=== PATIENT | male | born 1940 | race Caucasian/White ===

== ENCOUNTER → 2017-06-07 | Outpatient (CLI) | payer OTHER ==
[~2017-06-07] MED LIST: ALLEGRA-D 12 H1 EAC1 PO; ALLEGRA180 MG PO; ALLER-EASE180 MG PO; AMARYL2 MG PO; BLOOD PRESSURE PILL; CATAPRES-TTS 10.1 MG TD; CIPROFLOXACIN500 M1 PO; CLONIDINE HCL0.2 M2 PO; COLACE 100 MG100 MG PO; COLACE1 EAC1 PO; COLACE100 MG PO; CYMBALTA60 MG PO; FLONASE 0.05%50 MCG NASAL; HYDROCODON-ACE1 EAC7 PO; HYTRIN 5 M5 MG/1 CAP PO; LIPITOR40 MG PO; LIPITOR80 MG PO; LISINOPRIL20 MG PO; LISINOPRIL40 MG PO; LODINE500 MG PO; METFORMIN PO; METOPROLOL SUCC25 M1 PO; MIRALAX17 GM PO; MULTIGEN CAPLET1 CAP PO; NEURONTIN 300300 M1 PO; NORCO 10-325 T1 EACH PO; OMEPRAZOLE40 MG PO; PIOGLITAZONE15 MG; RANITIDINE 150150 M1 PO; SENNA S TABLET1 EACH PO; TERAZOSIN HCL10 MG PO; VICODIN 5-5001 EACH PO; ZANTAC 150MG T150 MG PO; ZOFRAN4 MG PO
== END ==
LOC: HYPER 06-06 10:01
DX: S80.812A Abrasion, left lower leg, initial encounter (principal); E11.40 Type 2 diabetes mellitus with diabetic neuropathy, unspecified; E11.65 Type 2 diabetes mellitus with hyperglycemia; I10 Essential (primary) hypertension; E78.2 Mixed hyperlipidemia; M15.9 Polyosteoarthritis, unspecified; J45.909 Unspecified asthma, uncomplicated; F17.200 Nicotine dependence, unspecified, uncomplicated; Z85.89 Personal history of malignant neoplasm of other organs and systems; X58.XXXA Exposure to other specified factors, initial encounter; Y93.89 Activity, other specified; Y92.89 Other specified places as the place of occurrence of the external cause; Y99.8 Other external cause status

== ENCOUNTER → 2017-08-20 | Outpatient (CLI) | payer OTHER ==
[~2017-08-20] MED LIST changes: +NORCO 5-325 TA1 EACH PO
== END ==
LOC: HYPER 06-26 06:56
DX: E11.622 Type 2 diabetes mellitus with other skin ulcer (principal); L97.821 Non-pressure chronic ulcer of other part of left lower leg limited to breakdown of skin; L97.811 Non-pressure chronic ulcer of other part of right lower leg limited to breakdown of skin; I73.9 Peripheral vascular disease, unspecified; J45.909 Unspecified asthma, uncomplicated; E78.5 Hyperlipidemia, unspecified; I10 Essential (primary) hypertension; M19.90 Unspecified osteoarthritis, unspecified site; F17.200 Nicotine dependence, unspecified, uncomplicated; Z85.828 Personal history of other malignant neoplasm of skin

== ENCOUNTER → 2017-08-27 | Outpatient (CLI) | payer OTHER | LOC: HYPER 07:11 | DX: E11.622 Type 2 diabetes mellitus with other skin ulcer (principal); L97.811 Non-pressure chronic ulcer of other part of right lower leg limited to breakdown of skin; L97.821 Non-pressure chronic ulcer of other part of left lower leg limited to breakdown of skin; E11.51 Type 2 diabetes mellitus with diabetic peripheral angiopathy without gangrene; E11.65 Type 2 diabetes mellitus with hyperglycemia; E11.40 Type 2 diabetes mellitus with diabetic neuropathy, unspecified; I89.0 Lymphedema, not elsewhere classified; E78.2 Mixed hyperlipidemia; I10 Essential (primary) hypertension; L84 Corns and callosities; I87.2 Venous insufficiency (chronic) (peripheral); M19.90 Unspecified osteoarthritis, unspecified site; N43.3 Hydrocele, unspecified; J45.909 Unspecified asthma, uncomplicated; F17.200 Nicotine dependence, unspecified, uncomplicated; Z85.89 Personal history of malignant neoplasm of other organs and systems ==

== ENCOUNTER → 2017-09-03 | Outpatient (CLI) | payer OTHER | LOC: HYPER 06:47 | DX: I87.2 Venous insufficiency (chronic) (peripheral) (principal); E11.622 Type 2 diabetes mellitus with other skin ulcer; L97.811 Non-pressure chronic ulcer of other part of right lower leg limited to breakdown of skin; L97.821 Non-pressure chronic ulcer of other part of left lower leg limited to breakdown of skin; R60.0 Localized edema; R21 Rash and other nonspecific skin eruption; E11.51 Type 2 diabetes mellitus with diabetic peripheral angiopathy without gangrene; E11.40 Type 2 diabetes mellitus with diabetic neuropathy, unspecified; I89.0 Lymphedema, not elsewhere classified; E78.2 Mixed hyperlipidemia; N43.3 Hydrocele, unspecified; M15.9 Polyosteoarthritis, unspecified; L25.1 Unspecified contact dermatitis due to drugs in contact with skin; K63.5 Polyp of colon; J45.909 Unspecified asthma, uncomplicated; E78.5 Hyperlipidemia, unspecified; I10 Essential (primary) hypertension; F17.200 Nicotine dependence, unspecified, uncomplicated ==

== ENCOUNTER → 2017-09-10 | Outpatient (CLI) | payer OTHER | LOC: HYPER 07:01 | DX: E11.622 Type 2 diabetes mellitus with other skin ulcer (principal); I87.2 Venous insufficiency (chronic) (peripheral); L97.811 Non-pressure chronic ulcer of other part of right lower leg limited to breakdown of skin; L97.821 Non-pressure chronic ulcer of other part of left lower leg limited to breakdown of skin; R60.0 Localized edema; R21 Rash and other nonspecific skin eruption; E11.51 Type 2 diabetes mellitus with diabetic peripheral angiopathy without gangrene; E11.40 Type 2 diabetes mellitus with diabetic neuropathy, unspecified; I89.0 Lymphedema, not elsewhere classified; J45.909 Unspecified asthma, uncomplicated; E78.5 Hyperlipidemia, unspecified; M19.90 Unspecified osteoarthritis, unspecified site; F17.200 Nicotine dependence, unspecified, uncomplicated ==

== ENCOUNTER → 2017-09-24 | Outpatient (CLI) | payer OTHER ==
[~2017-09-24] MED LIST changes: -NORCO 5-325 TA1 EACH PO
== END ==
LOC: HYPER 06:55
DX: E11.622 Type 2 diabetes mellitus with other skin ulcer (principal); I87.2 Venous insufficiency (chronic) (peripheral); L97.811 Non-pressure chronic ulcer of other part of right lower leg limited to breakdown of skin; L97.821 Non-pressure chronic ulcer of other part of left lower leg limited to breakdown of skin; E11.40 Type 2 diabetes mellitus with diabetic neuropathy, unspecified; R21 Rash and other nonspecific skin eruption; R60.0 Localized edema; E11.51 Type 2 diabetes mellitus with diabetic peripheral angiopathy without gangrene; I89.0 Lymphedema, not elsewhere classified; E78.5 Hyperlipidemia, unspecified; J45.909 Unspecified asthma, uncomplicated; M19.90 Unspecified osteoarthritis, unspecified site; F17.200 Nicotine dependence, unspecified, uncomplicated

== ENCOUNTER → 2017-10-15 | Outpatient (CLI) | payer OTHER | LOC: HYPER 06:46 | DX: E11.622 Type 2 diabetes mellitus with other skin ulcer (principal); L97.811 Non-pressure chronic ulcer of other part of right lower leg limited to breakdown of skin; L97.821 Non-pressure chronic ulcer of other part of left lower leg limited to breakdown of skin; E11.51 Type 2 diabetes mellitus with diabetic peripheral angiopathy without gangrene; I87.2 Venous insufficiency (chronic) (peripheral); E11.40 Type 2 diabetes mellitus with diabetic neuropathy, unspecified; I89.0 Lymphedema, not elsewhere classified; I10 Essential (primary) hypertension; E78.2 Mixed hyperlipidemia; N43.3 Hydrocele, unspecified; M15.9 Polyosteoarthritis, unspecified; L25.1 Unspecified contact dermatitis due to drugs in contact with skin; K63.5 Polyp of colon; R21 Rash and other nonspecific skin eruption; R60.0 Localized edema; J45.909 Unspecified asthma, uncomplicated; E78.5 Hyperlipidemia, unspecified; M19.90 Unspecified osteoarthritis, unspecified site; F17.200 Nicotine dependence, unspecified, uncomplicated ==

== ENCOUNTER 2017-12-07 20:48 | Emergency (ER) | payer OTHER ==
[~2017-12-07] VITALS: Ht 172.7 cm; Wt 90.7 kg
[2017-12-07] MEDS ORDERED: NORCO 5-325 TA1 EACH PO (21:45)
[2017-12-07 22:19] VITALS: BP 128/81
== END 2017-12-07 22:30 | disposition home or self-care (01) ==
LOC: ER 20:48
DX: S46.002A Unspecified injury of muscle(s) and tendon(s) of the rotator cuff of left shoulder, initial encounter (principal); I10 Essential (primary) hypertension; E11.9 Type 2 diabetes mellitus without complications; M19.90 Unspecified osteoarthritis, unspecified site; F17.210 Nicotine dependence, cigarettes, uncomplicated; Z88.2 Allergy status to sulfonamides; Z88.8 Allergy status to other drugs, medicaments and biological substances; X58.XXXA Exposure to other specified factors, initial encounter; Y93.89 Activity, other specified; Y92.89 Other specified places as the place of occurrence of the external cause; Y99.8 Other external cause status

== ENCOUNTER 2020-04-22 14:52 | Inpatient (IN) | payer OTHER ==
[~2020-04-22] VITALS: Ht 177.8 cm; Wt 98.2 kg
--- NOTE | ~2020-04-22 | HC ---
[facility] [place] [address] CONSULTATION Name: NAYELI COOK REYNOLD Room #: 452-P ADM IN M.R.#: [id number] Admission: 04/22/20 Attend Phys: Jas Stein MD Discharge: Date of : 40 Report #: [id number] THIS REPORT FOR: cc: Nora Martinez MD, Constance M. MD Althoff, Jeffrey R. MD ~ DATE OF SERVICE: 04/23/2020 CHIEF COMPLAINT: Gluteal and lower extremity ulcerations. HISTORY OF PRESENT ILLNESS: This is an 80-year-old male patient admitted to the hospital with cellulitis and ulcerations of his lower extremities due to recurrent falls. He is denying any significant pain, but does note tenderness when his legs are palpated. He is a little bit slow to answer some questions tonight, but does not seem to be in any distress. PAST MEDICAL HISTORY: Positive for hypertension, arthritis, type 2 diabetes mellitus, back pain and previous hernia. SOCIAL HISTORY: Negative for alcohol use. He is a current smoker. FAMILY HISTORY: Noncontributory. MEDICATIONS: Include gabapentin, lisinopril, clonidine, atorvastatin, terazosin, duloxetine, glimepiride, ketaconazole, cholecalciferol, fluticasone. REVIEW OF SYSTEMS: CONSTITUTIONAL: The patient denies fever, chills or weight loss. NEUROLOGICAL: The patient denies focal weakness, numbness or tingling. EYES: The patient denies visual changes, redness, or drainage. ENT: The patient denies earache, nasal drainage, or sore throat. CARDIOVASCULAR: The patient denies chest pain, palpitations or diaphoresis. PULMONARY: The patient denies cough or shortness of breath. GASTROINTESTINAL: The patient denies nausea, vomiting, diarrhea or abdominal pain. ORTHOPEDIC: The patient does have some pain and swelling and ulceration to the lower extremities. Other systems were 14-point review of systems are negative. PHYSICAL EXAMINATION: VITAL SIGNS: At this time include temperature 37.1, pulse 77, respiratory rate 17, blood pressure 146/63. GENERAL: This is a chronically ill-appearing male patient who appears to be in no distress. [address] [address] CONSULTATION Name: NAYELI COOK [facility] Room #: 452-P [facility] IN .R.#: [id number] Admission: 04/22/20 Attend Phys: Jas Stein MD Discharge: Date of : 40 Report #: [id number] HEENT: Head is normocephalic. Nose and throat clear. NECK: Supple. LUNGS: Clear. ABDOMEN: Soft. EXTREMITIES: Gluteal region demonstrates stage 3 pressure ulcerations to the buttocks x 2 on the left side. He has a small circular ulceration to the right knee that is dry. There is a pretibial ulceration. It is unclear as to whether this was the site of a blister or a traumatic wound. There is surrounding cellulitis and moderate swelling surrounding the area. Distal pulses are diminished. NEUROLOGIC: The patient is alert, does move all 4 extremities spontaneously. LABORATORY DATA: White blood cell count 8.7, hemoglobin 8.8. Sodium 141, potassium 4.6, chloride 109, CO2 of 22, BUN 34, creatinine 1.4, glucose 136. CLINICAL IMPRESSION: 1. Traumatic wound to the right knee. 2. Ulceration versus traumatic wound to the right pretibial region. 3. Cellulitis of the right lower extremity. 4. Stage 3 pressure ulceration of the left gluteal region. 5. Type 2 diabetes mellitus. 6. Generalized debility. RECOMMENDATIONS: At this point in time, we will recommend topical gentamicin, Xeroform gauze to the open areas on the right lower leg. We will recommend Kerlix and Junior wrap for gentle compression. We will check arterial Dopplers to evaluate for underlying peripheral vascular disease. Recommend border foam to the right knee. Recommend zinc oxide based moisture barrier cream to the gluteal ulcerations. He will need q. 2 hour turning and positioning a low air last surface and ongoing nutritional support to maximize wound healing and improve glycemic control. I appreciate being asked to see the patient in consultation. By: 13 1 Errol Galan MD /nt
[~2020-04-22 14:52] MED LIST changes: +NORCO 5-325 TA1 EACH PO
[2020-04-22 14:53] VITALS: BP 116/28
[2020-04-22] MEDS ORDERED: KETOCONAZOLE15 GM TOP (14:59)
[2020-04-22] MEDS ORDERED: GLIMEPIRIDE4 MG PO (14:59)
[2020-04-22] MEDS ORDERED: 24HR ALLERGY REL5 MG PO (15:00)
[2020-04-22] MEDS ORDERED: PROTONIX40 M2 PO (15:00)
[2020-04-22] MEDS ORDERED: LANTUS SUBQ (15:00)
[2020-04-22] MEDS ORDERED: AZELASTINE205.5 MCG/ NARES (15:01)
[2020-04-22] MEDS ORDERED: FAMOTIDINE 40 M40 M1 PO (15:02)
[2020-04-22] MEDS ORDERED: DIALYVITE VI1250 MCG PO (15:02)
[2020-04-22] MEDS ORDERED: NEURONTIN300 MG PO ×2 (15:02→15:03)
[2020-04-22] MEDS ORDERED: IPRAT-ALBUT 0.5-3 ML INH (15:03)
[2020-04-22] MEDS ORDERED: BREO ELLIPTA 11 EACH INH (15:04)
[2020-04-22] MEDS ORDERED: FLONASE 0.05%50 MCG NARES (15:04)
[2020-04-22 15:36] LABS: ABSOLUTE NEUTROPHILS 7.8 thou/uL (1.4-8.2); BASOPHILS 0.3 % (0.0-2.0); EOSINOPHILS 1.5 % (0.0-3.0); HEMOGLOBIN 8.7 gm/dL (14.0-18.0); LYMPHOCYTES 6.8 % (24.0-44.0); MCH 32.6 pg (26.0-34.0); MCHC 33.6 g/dL (28.0-37.0); MCV 97.1 fL (80.0-100.0); MONOCYTES 8.3 % (1.0-8.0); PLATELET COUNT 281 thou/uL (150-400); POLYS 83.1 % (36.0-66.0); RBC 2.68 mil/uL (4.50-6.00); RDW 14.3 % (10.5-14.5); WBC 9.4 thou/uL (4.0-11.0)
[2020-04-22 15:52] LABS: ANION GAP 13 mmol/L (7-16); BUN 38 mg/dL (7-18); CALCIUM 8.6 mg/dL (8.5-10.1); CHLORIDE 107 mmol/L (98-107); CO2 22 mmol/L (21-32); CREATININE 1.8 mg/dL (0.7-1.3); GLUCOSE 161 mg/dL (74-106); POTASSIUM 4.6 mmol/L (3.5-5.1); SODIUM 142 mmol/L (136-145)
[2020-04-22 16:11] LABS: ALBUMIN 2.2 g/dL (3.4-5.0); SGOT 86 U/L (15-37); SGPT 56 U/L (30-65); TOTAL BILIRUBIN 0.5 mg/dL (0.2-1.0); TROPONIN-I <0.06 ng/mL (<0.06)
[2020-04-22 16:26] LABS: URINE BILIRUBIN NEGATIVE (Negative); URINE BLOOD NEGATIVE (Negative); URINE CLARITY CLEAR; URINE COLOR YELLOW; URINE GLUCOSE-RANDOM* NEGATIVE (Negative); URINE KETONES NEGATIVE (Negative); URINE LEUKOCYTES-REFLEX NEGATIVE (Negative); URINE NITRITE-REFLEX NEGATIVE (Negative); URINE PROTEIN (DIPSTICK) NEGATIVE (Negative); URINE SPECIFIC GRAVITY 1.025 (1.005-1.035); URINE UROBILINOGEN 0.2 E.U./dl (0.2-1.0)
--- NOTE | 2020-04-22 17:12 | NUR ---
PT WANTS FAMILY MEMBER NOTIFIED OF ANY CHANGES-ALSO NEXT OF KIN-MICHELLE MAHMOOD-[phone]
[2020-04-22 18:28] LABS: FOLIC ACID 6.3 ng/mL (8.6-58.9); TSH 0.529 uIU/mL (0.358-3.740)
[2020-04-22 18:50] LABS: % SATURATION 16 % (20-39); IRON 37 ug/dL (65-175); TIBC 228 ug/dL (250-450)
[2020-04-22 19:36] VITALS: BP 132/46
[2020-04-22 20:06] VITALS: BP 136/54
[2020-04-22 20:30] VITALS: BP 142/37
[2020-04-23 00:19] VITALS: BP 138/51
--- NOTE | 2020-04-23 03:06 | NUR ---
Admission history and assessments completed. Careplan intiated. Bilateral extremity cellulitis. Ulcers buttocks area. Pictures taken. IVfluids infusing and IV antibiotics started. High fall risks, fall precautions in place. Vital signs and rhythm stable. Patient slept after Hydrocodone for pain.
[2020-04-23 06:16] LABS: BASOPHILS 0.3 % (0.0-2.0); EOSINOPHILS 1.2 % (0.0-3.0); HEMATOCRIT 26.1 % (42.0-52.0); HEMOGLOBIN 8.8 gm/dL (14.0-18.0); MCHC 33.7 g/dL (28.0-37.0); MCV 97.8 fL (80.0-100.0); MONOCYTES 7.7 % (1.0-8.0); PLATELET COUNT 284 thou/uL (150-400); POLYS 80.8 % (36.0-66.0); RBC 2.67 mil/uL (4.50-6.00); RDW 14.6 % (10.5-14.5); WBC 8.7 thou/uL (4.0-11.0)
[2020-04-23 06:28] LABS: CALCIUM 8.6 mg/dL (8.5-10.1); CREATININE 1.4 mg/dL (0.7-1.3); MAGNESIUM 2.1 mg/dL (1.8-2.4); POTASSIUM 4.6 mmol/L (3.5-5.1)
--- NOTE | 2020-04-23 07:40 | EKG ---
[facility] [place] [address] ELECTROCARDIOGRAM REPORT Name: NAYELI COOK [facility] Room #: 452-P ADM IN M.R.#: [id number] Admission: 04/22/20 Attend Phys: Jas Stein MD Discharge: Date of : 40 Report #: [id number] THIS REPORT FOR: cc: Nora Martinez MD, Constance M. MD Santiago, Patrick MD [facility] ~ THIS REPORT FOR: //name// [facility] ED Test Date: 2020-04-22 Test Time: 15:56:36 Pat Name: NAYELI COOK Department: Room: 452 Gender: M Video Coordinator: ALAINA : 1940 Requested By: Michelle Rodriguez Order Number: [id number] MD: Matti Ludwig Measurements Intervals [place] Rate: 77 P: 21 OH: 169 QRS: 2 QRSD: 94 T: 71 QT: 373 QTc: 423 Interpretive Statements Sinus rhythm Atrial premature complex Low voltage, precordial leads Compared to ECG 12/19/2016 17:20:08 Atrial premature complex(es) now present Low QRS voltage now present Electronically Signed On 04-23-2020 7:39:47 CDT by Matti Ludwig [email or web address] <ELECTRONICALLY SIGNED> By: Matti Ludwig MD, FACC 04/23/20 0739 1556 1556 Matti Ludwig MD, FAC /EPI
[2020-04-23 08:05] VITALS: BP 111/51
[2020-04-23 08:10] VITALS: BP 111/81
--- NOTE | 2020-04-23 10:08 | 2DMMODE ---
[facility] [place] [address] 2 D/M-MODE ECHOCARDIOGRAM Name: NAYELI COOK REYNOLD Room #: 452-P ADM IN M.R.#: [id number] Admission: 04/22/20 Attend Phys: Jas Stein MD Discharge: Date of : 40 Report #: [id number] THIS REPORT FOR: cc: Nora Martinez MD, Constance M. MD Lundgren, Craig H. MD [facility] ~ APPROVED REPORT Study performed: 04/23/2020 09:25:11 EXAM: Comprehensive 2D, Doppler, and color-flow Echocardiogram Patient Location: Bedside Room #: 452 Status: routine BSA: 2.16 HR: 90 bpm BP: 111/81 mmHg Rhythm: Sinus arrhythmia Other Information Study Quality: Adequate Indications Edema to bilateral lower extremities. Hx: HTN, HLD, DM. 2D Dimensions RVDd: 37.64 mm IVSd: 12.00 (7-11mm) LVOT Diam: 22.00 (18-24mm) LVDd: 47.00 mm PWd: 13.00 (7-11mm) LVDs: 30.00 (25-40mm) Aortic Root: 37.00 mm Volumes Left Atrial Volume (Systole) Single Plane 4CH: 44.42 mL Single Plane 2CH: 47.23 mL LA ESV Index: 23.00 mL/m2 Aortic Valve AoV Peak Jose J.: 2.30 m/s AO Peak Gr.: 21.25 mmHg LVOT Max P.46 mmHg AO Mean Gr.: 11.81 mmHg AO V2 Mean: 1.62 m/s LVOT Max V: 1.45 m/s [facility] [address] [place] [address] 2 D/M-MODE ECHOCARDIOGRAM Name: NAYELI COOK REYNOLD Room #: 452-P [facility] IN [facility]#: [id number] Admission: 04/22/20 Attend Phys: Jas Stein, Discharge: Date of : 40 Report #: [id number] AO V2 VTI: 37.62 cm LCAIE Vmax: 2.35 cm2 Mitral Valve E/A Ratio: 0.7 MV Decel. Time: 222.19 ms MV E Max Jose J.: 0.81 m/s MV A Jose J.: 1.09 m/s MV PHT: 64.44 ms IVRT: 65.74 ms Pulmonary Valve PV Peak Jose J.: 1.43 m/s PV Peak Gr.: 8.22 mmHg Tricuspid Valve RAP Estimate: 5.00 mmHg Left Ventricle The left ventricle is normal size. There is normal LV segmental wall motion. Mild concentric left ventricular hypertrophy. Left ventricular systolic function is normal. LVEF is 65-70%. Mild diastolic dysfunction Right Ventricle The right ventricle is normal size. The right ventricular systolic function is normal. Atria The left atrium size is normal. The right atrium size is normal. Aortic Valve Aortic valve is trileaflet, mildly sclerotic. Trace aortic regurgitation. There is no aortic valvular stenosis. Mitral Valve The mitral valve is normal in structure. There is no mitral valve regurgitation noted. No evidence of mitral valve stenosis. Tricuspid Valve The tricuspid valve is normal in structure. There is no tricuspid valve regurgitation noted. Unable to assess PA pressure. Pulmonic Valve Pulmonic valve is not well visualized. Trace pulmonic regurgitation. [facility] [address] [place] [address] 2 D/M-MODE ECHOCARDIOGRAM Name: NAYELI COOK REYNOLD Room #: 452-P [facility] IN M.R.#: [id number] Admission: 04/22/20 Attend Phys: Jas Stein, Discharge: Date of : 40 Report #: [id number] Great Vessels The aortic root is normal in size. Ascending aorta is not well visualized. IVC is normal in size and collapses >50% with inspiration. Pericardium There is no pericardial effusion. <Conclusion> Left ventricular systolic function is normal. There is normal LV segmental wall motion. LVEF is 65-70%. Mild diastolic dysfunction Aortic valve is trileaflet, mildly sclerotic. Trace aortic regurgitation, no stenosis. The mitral valve is normal in structure. No mitral valve regurgitation. Unable to assess pulmonary artery pressure. There is no pericardial effusion. <ELECTRONICALLY SIGNED> By: Darshan Lamb MD, FACC 04/23/201007 07 07 Darshan Lamb MD, [facility] /INF
--- NOTE | 2020-04-23 14:42 | NUR ---
PT ADMITTED RELATED TO CELLULITIS. CM REVIEWED CHART AND SPOKE WITH CARE TEAM. CM MET WITH PT AT BEDSIDE THIS DAY. PT APPEARED TO BE A&O X4. CM ROLE INTRODUCED. PT INDIATED HE LIVES ALONE IN A HOUSE WITH NO STEPS TO ENTER AND 12 STEPS TO BASEMENT BUT HE DOESN'T GO DOWN THERE OFTEN. PT INDICATED THAT HE HAD BEEN USING A 4WW TO ASSIST WITH MOBILITY IN THE HOME. 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 PT INDICATED NO SKILLED, OR HH HX BUT THAT HE HAD DONE OP PT AT [facility] IN THE PAST. PT INDICATED THAT HE IS RECEPTIVE TO POST ACUTE CARE STAY IF NEEDED UPON DC AND THAT DTR WOULD LIKE FOR PT TO BE SOMEWHERE CLOSE TO [place] WHERE SHE LIVES. CM SPOKE WITH PT'S DTR MICHELLE WHO IS HIS STEP DTR. SHE INDICATED THAT PT HAS BEEN HOUSE BOUND FOR THE AST 3 WEEKS. 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 SHE INDICATED THAT PT CAN'T READ AND THEREFORE DOESN'T TAKE MEDICATIONS PERSCRIBED. SHE TOOK TWO TRASH BAGS OF PERSCRIPTIONS MEDS OUT OF THE HOUSE DAY OF ADMISSION AND PT DOESN'T CHECK HIS BS. SHE INDICATED THAT SHE HAD BEEN ASSISTING PT IN LOOKING TO MOVE TO A SENIOR APARTMENT COMPLEX [facility] PRIOR TO ADMIT. PT AND STEP DTR MICHELLE ARE RECEPTIVE TO POST ACUTE CARE STAY AND HAVE ASKED THAT REFERRALS BE SENT TO [facility] FOR REVIEW FOR POSSIBLE ADMISSION. CM FAXED REFERRALS. LIKELY NO DC OVER WEEKEND WE WOULD NEED AUTH.
[2020-04-23 16:41] VITALS: BP 140/69
--- NOTE | 2020-04-23 18:38 | NUR ---
ASSUMED CARE OF PATIENT AT SHIFT CHANGE. ASSESSMENT CHARTED. MEDS GIVEN PER MAR. VSS. PATIENT IS A&OX3 AND C/O PAIN; GENERALIZED AND ON BLE. PATIENT HAS MULTIPLE WOUNDS. WOUND CARE WAS CONSULTED AND ORDERS ARE ANTICIPATED. PATIENT IS VERY TIRED TODAY AND STATES HE DID NOT SLEEP WELL LAST NIGHT. IS TOLERATING DIET WELL BUT APPETITE IS NOT ADEQUATE. CM SPOKE WITH THIS PATIENT AND PLAN IS FOR PLACEMENT. WILL CONTINUE TO MONITOR
[2020-04-23 19:41] VITALS: BP 146/63
--- NOTE | 2020-04-23 23:09 | NUR ---
Care of patient assumed at 1915: Patient resting quietly in bed. Denies pain or discomfort. Bilateral heel protectors in place. Order placed for specialty low air loss bed. Spoke with Ed from [facility] who stated bed will be delivered 04/24/20 in the AM. High fall risk precautions in place. Wound treatments completed to right knee, right garcia, left lower extremity, left upper buttock and left lower buttock. Re-positioned q2 hours. Resting quietly at this time.
[2020-04-24 08:04] VITALS: BP 145/54
[2020-04-24 15:21] VITALS: BP 141/66
[2020-04-24 15:54] LABS: CALCIUM 8.3 mg/dL (8.5-10.1); CREATININE 1.2 mg/dL (0.7-1.3); POTASSIUM 4.5 mmol/L (3.5-5.1)
[2020-04-24 16:10] LABS: HEMATOCRIT 26.6 % (42.0-52.0); HEMOGLOBIN 8.5 gm/dL (14.0-18.0); MCH 32.1 pg (26.0-34.0); MCHC 32.1 g/dL (28.0-37.0); RBC 2.66 mil/uL (4.50-6.00); RDW 14.9 % (10.5-14.5); WBC 11.9 thou/uL (4.0-11.0)
--- NOTE | 2020-04-24 16:40 | NUR ---
ASSUMED CARE OF PATIENT AT APPROX. 0800. ASSESSMENT CHARTED. MEDS GIVEN PER MAR. VSS. PATIENT IS ALERT BUT IS CONFUSED AT TIMES. PATIENT STILL HAS WEAKNESS BUT IS AWAKE TODAY. IV INFUSING ABX W NO ISSUES. FSBS IMPROVING. WANTED TO GET UP TODAY W PT BUT WAS NOT ABLE TO WORK W THEM.INCONT OF BLADDER; EXTERNAL MALE CATH IN PLACE. PATIENT CONTINUES TO BE REPOSITIONED AND CHANGED OFTEN. PATIENT CALLED OUT TO USE THE BEDPAN FOR A BM. COMPLAINED OF A HEADACHE; TREATED W PRN ANALGESIC W COMPLETE PAIN RELIEF. PATIENT VOICED NO OTHER NEEDS AT THIS TIME. FALL PRECAUTIONS IN PLACE. WILL CONTINUE TO MONITOR
[2020-04-24 19:55] VITALS: BP 144/67
--- NOTE | 2020-04-25 02:18 | NUR ---
PATIENT ALERT AND ORIENTED X4 WITH CONFUSION. BS MONITORED PER ORDER. MEDICATED FOR PAIN X1 WITH GOOD RESULTS. MS TELE-NSR. VOIDING PER URINAL WELL INCONTINENT. NO STOOL AT TIME OF NOTE. DRESSINGS DRY AND INTACT. DENIES NAUSEA. WILL MONITOR.
[2020-04-25 08:28] VITALS: BP 166/74
[2020-04-25 15:01] VITALS: BP 184/67
[2020-04-25 15:10] VITALS: BP 166/74
--- NOTE | 2020-04-25 15:12 | NUR ---
PT ALERT AND ORIENTED TIMES FOUR. PT C/O PAIN PRN PAIN MEDICATIONS GIVEN WITH SOME RELEIF. DRESSING TO BLE CHANGED. PT TOLERATES MEDS AND MEALS. WILL CONTINUE TO MONITOR.
[2020-04-25 19:00] VITALS: BP 161/64
--- NOTE | 2020-04-26 00:49 | NUR ---
PATIENT AOX4 MAKES NEEDS KNOWN. PATIENT IS INCONTIENT OF BLADDER PERICARE AND BARRIER CREAM APPLIED NEEDED. PATIENT HAS BLE CELLULITIS, PATIENT ENCOURAGED TO ELEVATE BLE. FALL PRECAUTION IN PLACE. PATIENT IN BED ASLEEP AT THIS TIME BREATHING REGULAR AND UNLABOURED.
[2020-04-26 08:00] VITALS: BP 155/102; BP 169/66
--- NOTE | 2020-04-26 08:36 | HC ---
[facility] [place] [address] CONSULTATION Name: NAYELI COOK REYNOLD Room #: 452-P ADM IN M.R.#: [id number] Admission: 04/22/20 Attend Phys: Jas Stein MD Discharge: Date of : 40 Report #: [id number] THIS REPORT FOR: cc: Nora Martinez MD, Constance M. MD Al-Tish,Malathi Mendoza MD ~ REASON FOR CONSULTATION: Elevated creatinine. REASON FOR PRESENTATION: Multiple falls and weakness. HISTORY OF PRESENT ILLNESS: An 80-year-old with past medical history of diabetes mellitus and hypertension. He was brought by the EMS due to recent multiple falls. He was found to have an elevated creatinine at 1.8 on arrival. Prior values of the patient's creatinine had revealed that his creatinine is anywhere from 1.1-1.5. Initial evaluation revealed that the patient has left popliteal vein DVT and what seems to be cellulitis on the lower extremity. The patient was admitted to further evaluate his issues. I was consulted to manage his acute kidney injury. He does have significant risk factors for chronic kidney disease including longstanding diabetes mellitus and hypertension. He denies nonsteroidal anti-inflammatory medications. He denies any obstructive symptoms. MEDICATIONS: 1. Lisinopril. 2. Clonidine. 3. Terazosin. 4. Pantoprazole. 5. Gabapentin. PAST MEDICAL AND SURGICAL HISTORY: 1. Hypertension. 2. Diabetes mellitus. 3. Arthritis. 4. Back pain issues. FAMILY HISTORY: Significant for diabetes mellitus. SOCIAL HISTORY: No drug or alcohol abuse. ALLERGIES: SULFA. REVIEW OF SYSTEMS: GENERAL: No fever or chills, but significant for repeated falls and weakness. CARDIOVASCULAR: No chest pain or palpitation, but significant for edema. PULMONARY: No cough or hemoptysis. [facility] [address] [place] [address] CONSULTATION Name: NAYELI COOK REYNOLD Room #: 452-P [facility] IN [facility]#: [id number] Admission: 04/22/20 Attend Phys: Jas Stein MD Discharge: Date of : 40 Report #: [id number] GASTROINTESTINAL: No nausea or vomiting. GENITOURINARY: No frequency, no urgency. MUSCULOSKELETAL: As per the history of present illness. NEUROLOGICAL: No headache, but significant for repeated falls. PHYSICAL EXAMINATION: VITAL SIGNS: Temperature 37.6, pulse rate is 93, respiratory rate is 14, and blood pressure is 111/81. HEAD AND NECK: No jugular venous distention. CHEST: No crackles. CARDIOVASCULAR: No rub detected. ABDOMEN: Soft, nontender. LOWER EXTREMITIES: Extensive bilateral lower extremity edema with what seems to be cellulitis on the right side. LABORATORY VALUES: From today revealed the following: Sodium 141, potassium 4.6, BUN is 34, creatinine is 1.4. Hemoglobin is 8.8. His UA is completely not remarkable. IMPRESSION AND PLAN: 1. Acute kidney injury. 2. Deep venous thrombosis. 3. Lower extremity edema, what seems to be cellulitis. 4. Anemia. 5. He is back to his baseline from the renal perspective. This is chronic kidney disease due to longstanding diabetes mellitus and hypertension. 6. He is currently being treated appropriately for his cellulitis and deep venous thrombosis. 7. He needs very strict salt restriction. We will initiate on very gentle torsemide dose for his edema to help with the control of the edema and the cellulitis. 8. Discontinue IV fluid. 9. Discontinue Neurontin. 10. Follow vancomycin level. No further renal recommendations. I will sign off. <ELECTRONICALLY SIGNED> By: Malathi Moulton MD 04/26/20 0836 0815 1314 Malathi Moulton MD /nt
[2020-04-26 11:38] LABS: CALCIUM 8.7 mg/dL (8.5-10.1); CREATININE 1.1 mg/dL (0.7-1.3); POTASSIUM 4.1 mmol/L (3.5-5.1)
--- NOTE | 2020-04-26 11:40 | NUR ---
Assumed pt care at 7am.Assessment completed.vss.Pt c/o lower extremities pain. Pain med given with am meds and well tolerated.Dr Bryan here,order noted. Covid 19 swab done later this morning in prep for dc to snf. Drsg change will be done after seen by wound care today.No further c/o at present.Will continue to monitor.
--- NOTE | 2020-04-26 11:51 | NUR ---
CM FOLLOWED UP WITH HI IN ADMISSIONS AT [place]. SHE INDICATED THAT ALTHOUGH CM HAD FAXED REFERRAL THREE TIMES [facility] THAT THEIR FAX WAS STILL BROKEN AND SHE HADN'T RECIEVED IT. CM REFAXED. CM CALLED AGAIN AND SHE RECIEVED IT THIS AM. SHE WAS MAKING SURE THEY ARE IN NETWORK WITH PT'S INSURANCE. CM TO REACH OUT TO [facility] AND SEND CLINICAL UPDATES. PT'S COVID TEST WEAS DONE THIS AM. CM TO FOLLOW INDICATED WITH DC PLANNING.
[2020-04-26 16:57] LABS: HEMATOCRIT 28.8 % (42.0-52.0); HEMOGLOBIN 9.8 gm/dL (14.0-18.0); MCH 33.1 pg (26.0-34.0); MCHC 34.1 g/dL (28.0-37.0); MCV 97.1 fL (80.0-100.0); RBC 2.97 mil/uL (4.50-6.00); RDW 13.9 % (10.5-14.5); WBC 9.8 thou/uL (4.0-11.0)
[2020-04-26 21:02] VITALS: BP 151/77
[2020-04-27 04:04] VITALS: BP 156/65
--- NOTE | 2020-04-27 04:50 | NUR ---
PROGRESS PT ALERT X 3 BUT FORGETFUL AND CONFUSED AT TIMES. HAS CHRONIC LOWER BACK AND BILATERAL LEG PAIN TAKING HYDROCODONE Q4 TO 6 WITH SOME EFFECT PT SLEEPS AFTER MEDS BUT CONSISENTLY RATES IT A 10. DRESSING DONE AT DINNER TIME AND REMAIN C/D/I PT ASSISTS IN REPOSITIONING AND IS VOIDING PER URINAL HAD A SMALL BM SAMPLE OBTAINED TO SEND TO LAB FOR OCCULT BLOOD. IV ANTIBIOTICS INFUSED ORDERED.
[2020-04-27 07:20] VITALS: BP 148/77
[2020-04-27] MEDS ORDERED: ELIQUIS5 MG PO (10:03)
[2020-04-27] MEDS ORDERED: ACETAMINOPHEN325 M1 PO (10:03)
[2020-04-27] MEDS ORDERED: DEMADEX20 MG PO (10:04)
[2020-04-27] MEDS ORDERED: LEVOFLOXACIN500 MG PO (10:05)
--- NOTE | 2020-04-27 14:14 | NUR ---
SPOKE WITH HI IN ADMISSIONS AT [place] THEY ARE ABLE TO ACCEPT PT AND HAVE SUBMITTED FOR INSURANCE AUTH. UPDATED CLINICAL SEND TO FACILITY THIS AM. CM CALLED AND NOTIFIED PT'S STEP DTR MICHELLE. SHE IS AWARE AND AGREEABLE. CM TO FOLLOW INDICATED WITH DC PLANNING.
[2020-04-27 15:20] VITALS: BP 151/52
--- NOTE | 2020-04-27 19:22 | NUR ---
ASSUMED PT CARE THIS AM. PT VSS, A&OX4. PT COMPLAINED OF PAIN, MANAGED WITH MEDICATION PER EMAR. WOUND DRESSINGS CHANGED. BARRIER CREAM APPLIED. LOL MATTRESS ON, HEEL PROTECTOR BOOTS ON. WHEN GIVING PT AM MEDS, HE COUGHED THEM OUT. HE THEN REPORTED NAUSEA AND STARTED DRY HEAVING. ZOFRAN GIVEN, NURSE ATTEMPTED TO GIVE AM MEDS AGAIN, PT REFUSED THEM AND STATED THAT HE DIDNT WANT TO TAKE THEM. PT ON TELE. IV PATENT. PT ON BEDPAN, USES URINAL. PT REFUSED Q2 TURNS, NURSE EDUCATED. ENDORSED TO NIGHT NURSE.
[2020-04-27 20:32] VITALS: BP 152/62
--- NOTE | 2020-04-28 03:49 | NUR ---
VSS-AFEBRILE. LUNGS CLEAR, ROOM AIR. C/O SIGNIFICANT BACK AND BLE PAIN THAT IS PARTIALLY RELIEVED WITH PO PAIN MEDICATION. CONTINENT OF LARGE, BROWN LOOSE STOOL OVERNIGHT. REFUSED TURNS THROUGH SHIFT. FALL PRECAUTIONS IN PLACE, CALLS APPROPRIATELY FOR ANY NEEDED ASSISTANCE.
[2020-04-28 07:30] VITALS: BP 175/72
--- NOTE | 2020-04-28 09:58 | NUR ---
CM FAXED UPDATED PT, OT, ST, AND PROG NOTES TO HI IN ADMISSIONS AT [place] THIS AM. CM CALLED AND NOTIFIED HER THAT THEY HAD BEEN FAXED. SHE INDICATED SHE WOULD SUBMIT TO INSURANCE FOR REVIEW AND INDICATED THAT SHE HOPES TO HEAR FROM THEM BY NOON TODAY. CM TO FOLLOW INDICATED WITH DC PLANNING.
--- NOTE | 2020-04-28 11:55 | NUR ---
CM RECIEVED VM WITH SKILLED AUTH FOR PT TO GO TO [facility]. CM CALLED AND NOTIFIED HI IN ADMISSIONS AT [facility] WHO INDICATED THAT THEY HADN'T YET BEEN NOTIFIED OF AUTH AND THAT THEY DIDN'T HAVE A BED ON THEIR ISOLATION UNIT UNTIL TOMORROW. CM NOTIFIED PHYSICIAN, PT, AND STEP DTR MICHELLE. ALL AWARE AND AGREEABLE WITH DC TO [facility] TOMORROW Sunday04/29/20. CM TO FAX ORDERS. [facility] TO BE SET UP. CHART COPY MADE. CM TO FOLLOW INDICATED WITH DC PLANNING.
[2020-04-28 15:09] VITALS: BP 139/75
--- NOTE | 2020-04-28 16:47 | NUR ---
ASSUMED PT CARE THIS AM. PT VSS, A&OX4. PT COMPLAINS OF PAIN, MANAGED WITH MEDS. WOUND DRESSINGS CHANGED AND PICTURES TAKEN. LOL MATTRESS WORKING. PT NOT WILLING TO REPOSITION SELF Q2H. NURSE EDUCATED ON IMPORTANCE. PT USES URINAL AND BEDPAN. BOOTS ON WITHOUT COMPLAINT. PT REPORTED NAUSEA, MEDS GIVEN AND RESPONDED WELL. ON TELEMETRY, RECORDED ON CHART.BARRIER CREAM PLACED.
[2020-04-28 17:38] VITALS: BP 147/65
[2020-04-28 19:43] VITALS: BP 157/67
[2020-04-29 08:34] VITALS: BP 150/58
[2020-04-29 08:44] VITALS: BP 150/58
--- NOTE | 2020-04-29 10:27 | NUR ---
ASSUMED CARES AT 0700. PT AWAKE, ALERT AND ORIENTED*4. C/O BILATERAL LE PAIN, PAIN MEDICATION ADMINISTERED NEEDED. VITALS REMAIN STABLE. WOUNDCARE TO BLE, SACRAL AND RIGHT KNEE COMPLETED PER ORDER. EXTREMITIES ELEVATED. PT TO DC THIS AM TO [facility]. WILL CALL REPORT TO ADMITTING RN BEFORE DC. Q1H VISUAL CHECKS. FALL PRECAUTIONS IN PLACE. CALL LIGHT WITHIN REACH
--- NOTE | 2020-04-29 10:30 | NUR ---
CARE TEAM INDICATED THAT PT IS MEDICALLY STABLE TO DC TO SNF AT [place] THIS DAY. CHART COPY MADE. ORDERS FAXED. [facility] ARRANGED FOR 12:00. PT AND PT'S STEP DTR/DPOA MICHELLE AWARE AND AGREEABLE. NURSE GIVEN NUMBER FOR REPORT. NO OTHER CM INTERVENTION INDICATED. CASE CLOSED.
--- NOTE | 2020-04-30 12:33 | HC ---
[facility] [place] [address] CONSULTATION Name: NAYELI COOK REYNOLD Room #: 452-P [facility] IN M.R.#: [id number] Admission: 04/22/20 Attend Phys: Jas Stein MD Discharge: 04/29/20 Date of : 40 Report #: [id number] THIS REPORT FOR: cc: Nora Martinez MD, Constance M. MD Barry, Joseph W. MD ~ DATE OF SERVICE: 04/23/2020 INFECTIOUS DISEASE CONSULTATION ATTENDING PHYSICIAN: Dr. Stein. REASON FOR EVALUATION: Lower extremity wounds complicated by skin and soft tissue infection with cellulitis. HISTORY OF PRESENT ILLNESS: Chart reviewed, patient examined. This is an 80-year-old gentleman who presented to the Emergency Room with complaints of weakness, had had fall actually. He states the progressive particular right lower extremity over the last 3 days prior to admission in spite of using a walker. He has got wounds as a result of dragging himself across the floor apparently. He is mildly encephalopathic. He has had low-grade temperature elevations. Underwent evaluation, culture early has polymicrobial growth including Pseudomonas, Morganella and Proteus as well as Staph aureus. Blood culture is sterile thus far. Urinalysis unremarkable. Chest x-ray was unremarkable as well. As noted, he was in some renal insufficiency, which has improved and appears malnourished as well with an albumin of 2.2. Empirically started on combination therapy of Zosyn and vancomycin. He reports feeling somewhat stronger. He notes he has had a diminished appetite and p.o. intake. ALLERGIES: LISTED METOPROLOL AND METFORMIN. MEDICATIONS: Include folic acid, Zosyn, enoxaparin, torsemide, gabapentin, duloxetine, glimepiride, pantoprazole, vancomycin, p.r.n. analgesics and antiemetics. PAST MEDICAL HISTORY: Includes history of diabetes mellitus type 2 complicated by vasculopathy, has had stroke, history of hypertension, hyperlipidemia, chronic anemia, DVT with PE, chronic pain syndrome, opioids. SOCIAL HISTORY: Smokes. No ethanol. No illicit drug use. FAMILY HISTORY: Noncontributory. REVIEW OF SYSTEMS: Somewhat limited due to his encephalopathy. Denies any [address] [address] CONSULTATION Name: NAYELI COOK REYNOLD Room #: 452-P [facility] IN [facility].#: [id number] Admission: 04/22/20 Attend Phys: Jas Stein MD Discharge: 04/29/20 Date of : 40 Report #: [id number] significant GI related complaints. He notes he gets dyspneic at times. PHYSICAL EXAMINATION: GENERAL: Appears chronically ill, undernourished, is pleasant, although he is moderately encephalopathic. VITAL SIGNS: Temperature 99.7, pulse 92, respirations 14, blood pressure 111/81. SKIN: Warm, dry, no rashes. HEENT: Normocephalic. Extraocular muscles intact. NECK: Supple. LUNGS: Few scattered coarse breath sounds, somewhat diminished overall. HEART: Regular with occasional ectopy, may have a soft systolic murmur. ABDOMEN: Soft, it is obese, nontender. There are no peritoneal signs. EXTREMITIES: Bilateral lower extremities have several superficial ulcers associated with uqui-qj-nickhosa inflammation. There is no overt odor or purulence at this point. GENITOURINARY AND RECTAL: Deferred. LABORATORY DATA: Initial CBC: White count of 9.4, H and H 8.7 and 26.0, platelets of 281. CT of the head was otherwise unremarkable for any acute process. Lactic acid 1.1. Venous Doppler, positive for occlusive thrombus involving the left popliteal vein. Electrolytes: Sodium 142, potassium 4.6, chloride 107, bicarbonate is 22, anion gap of 13, BUN and creatinine 38 and 1.8, repeat was 1.4, glucose 161. AST of 86, ALT of 56. Albumin of 2.2, total protein 6.0, estimated GFR 36. Chest x-ray, no acute process. Urinalysis unremarkable. TSH is 0.529. Ferritin 364. Arterial Doppler biphasic and monophasic waveforms throughout the right side without findings of elevated velocity to suggest a focal stenosis. Blood cultures are sterile thus far. Cultures as described above, growth of Pseudomonas, Morganella, Proteus, Staph aureus. ASSESSMENT AND PLAN: Multiple wounds complicated by inflammation, likely skin and soft tissue infection, cultures suggest polymicrobial gram-negative etiology. We will continue broad-spectrum with the addition of Zosyn and vancomycin to include coverage for Staph aureus as well. He remains quite tenuous at this point. We will continue to monitor expectantly, supportive care. Noted that if there is any other evident focus of pyogenic infection that he can perceive, we will follow closely. We will add incentive spirometry. Increase activity as allowed. Encourage p.o. intake and suspect a degree of malnutrition as well contributing to his overall health decline. <ELECTRONICALLY SIGNED> By: Valerio Johnson MD 04/30/20 1233 12 42 Valerio Johnson MD /nt
== END 2020-04-29 12:17 | DRG 871 ==
LOC: ER 14:52 → 4W 16:31 → EROBS 16:31 → 4W 20:09
PROVIDERS: Hospitalist; Nurse Practitioner; Physician Assistant; ADMIT Internal Medicine; ATTEND Internal Medicine
DX: A41.9 Sepsis, unspecified organism (principal); L89.323 Pressure ulcer of left buttock, stage 3; N17.0 Acute kidney failure with tubular necrosis; E43 Unspecified severe protein-calorie malnutrition; M62.82 Rhabdomyolysis; I82.432 Acute embolism and thrombosis of left popliteal vein; L97.819 Non-pressure chronic ulcer of other part of right lower leg with unspecified severity; L03.116 Cellulitis of left lower limb; L03.115 Cellulitis of right lower limb; Z20.828 Contact with and (suspected) exposure to other viral communicable diseases; I10 Essential (primary) hypertension; M19.90 Unspecified osteoarthritis, unspecified site; E78.5 Hyperlipidemia, unspecified; E86.0 Dehydration; E83.42 Hypomagnesemia; E11.42 Type 2 diabetes mellitus with diabetic polyneuropathy; G89.4 Chronic pain syndrome; W18.39XA Other fall on same level, initial encounter; Y92.89 Other specified places as the place of occurrence of the external cause; I95.9 Hypotension, unspecified; K21.9 Gastro-esophageal reflux disease without esophagitis; D53.9 Nutritional anemia, unspecified; I87.8 Other specified disorders of veins; S81.001A Unspecified open wound, right knee, initial encounter; E66.9 Obesity, unspecified; Z83.3 Family history of diabetes mellitus; Z86.73 Personal history of transient ischemic attack (TIA), and cerebral infarction without residual deficits; Z79.4 Long term (current) use of insulin; Z88.2 Allergy status to sulfonamides; Z88.8 Allergy status to other drugs, medicaments and biological substances; Z87.891 Personal history of nicotine dependence; Z68.31 Body mass index [BMI] 31.0-31.9, adult; Y93.89 Activity, other specified; Y99.8 Other external cause status
CPT/HCPCS: 10045